=== PATIENT | male | born 1940 | race Caucasian/White ===

== ENCOUNTER → 2017-12-04 | Day surgery (SDC) | payer MEDICARE ==
[~2017-12-04] VITALS: Ht 177.8 cm; Wt 86.5 kg
[~2017-12-04] MED LIST: ASCO500C PO; CHLORHEXIDINE GLUCONATE 2 % 1 PACK (2 CLOTHS) TOPICAL PRN; FINA5TAB2 PO; HYALURONIDASE/LIDOCAINE/BUPIVACAINE 5 ML SYR RIGHT EYE SCH; LACTATED RINGER'S 1000 ML IV PRN; LIDOCAINE HCL 1% PF 30 ML VIAL ONE; METOPROLOL TARTRATE 25 MG TAB PO PRN; MULTTAB67 PO; OCUVTAB PO; POVIDONE IODINE 5% (ANTISEPSIS KIT) 4 APPLICATIONS EACH NARE PRN; PROPARACAINE HCL 0.5% OPHT SOLN 15 ML BTL RIGHT EYE ONE; PROPOFOL 200 MG/20 ML AMP ONE; SIMV40TA PO; SODIUM CHLORID 0.9% 500 ML IV PRN; TOBRAMYCIN/DEXAMETHASONE OPTH OINT 3.5 GM TUBE ONE
[2017-12-04] MEDS: TROPICAMIDE 1% OPHT SOLN 15 ML BTL RIGHT EYE SCH ×4 (06:55→07:10)
[2017-12-04] MEDS: CYCLOPENTOLATE HCL 1% OPHT SOLN 2 ML BTL RIGHT EYE SCH ×4 (06:55→07:10)
[2017-12-04] MEDS: PHENYLEPHRINE HCL 10% OPTH SOLN 5 ML BTL RIGHT EYE SCH ×4 (06:55→07:10)
[2017-12-04] MEDS: FLURBIPROFEN 0.03% OPHT SOLN 2.5 ML BTL RIGHT EYE SCH ×4 (06:55→07:10)
[2017-12-04 07:24] VITALS: PULSE 55
[2017-12-04 08:38] VITALS: TEMP 97.8
[2017-12-04 08:55] VITALS: BP 186/84; PULSE 55; RESP 16; O2SAT 97
--- NOTE | 2017-12-04 10:15 | MP ---
cc: ELAN VILLEGAS M.D. [facility] #: [id number] DATE: 12/04/2017 PREOPERATIVE DIAGNOSIS: Visually significant cataract right eye. POSTOPERATIVE DIAGNOSIS: Visually significant cataract right eye. OPERATION: Phacoemulsification with posterior chamber lens implantation, right eye. SURGEON: Elan Villegas MD ANESTHESIA: Retrobulbar with MAC. COMPLICATIONS: None. PROCEDURE: After informed consent was obtained, the patient was brought into the operative suite and placed on appropriate monitors by the Anesthesia Service. The patient had received a prior retrobulbar injection of local anesthetic by the Anesthesia Service in the holding area. The patient's operative eye was then prepped and draped in the usual sterile fashion. A wire lid speculum was placed. A paracentesis incision was made in the peripheral cornea with a 1 mm lon keratome. The anterior chamber was filled with viscoelastic. The anterior chamber was then entered through a stepped, clear corneal incision using a sharp 3 mm lon keratome. A circular tear capsulorrhexis was then made with a bent needle cystitome. Following hydrodissection of the lens nucleus with balanced saline, phacoemulsification of the nucleus was performed using a modified chopping technique. The remaining cortex was removed with irrigation/aspiration. The prior two procedures were both performed using the handpieces of the [employer] phaco unit. The capsular bag was then filled with viscoelastic. The intraocular lens was then injected into the capsular bag and positioned. The type of intraocular lens and its power can be found elsewhere in this chart. The remaining viscoelastic was then removed from the anterior chamber with the IA handpiece. The anterior chamber was reformed with balanced saline. The wound was then closed securely with stromal hydration. It was found to be watertight to an intraocular pressure of at least 30 mmHg by palpation. A small amount of balanced salt solution was then removed through the paracentesis site and the intraocular pressure at the end of the case was approximately 20 by palpation. All drapes were then removed. TobraDex ointment was then placed in the eye, which was closed beneath a semi-pressure patch dressing. The patient tolerated this procedure well and left the operating room awake and alert. The patient is to follow-up in my office in the morning. MD NASREEN Menard/GENA /9:55 AM /10:10 AM
== END | disposition home or self-care (01) ==
LOC: PHSDC 06:15
PROVIDERS: ATTEND Optometrist Occupational Vision
DX: H25.11 Age-related nuclear cataract, right eye (principal)
CPT/HCPCS: 00142; 66984; J7040; V2632

== ENCOUNTER → 2018-01-18 | Day surgery (SDC) | payer MEDICARE ==
[~2018-01-18] VITALS: Ht 177.8 cm; Wt 82.0 kg
[~2018-01-18] MED LIST changes: +HYALURONIDASE/LIDOCAINE/BUPIVACAINE 5 ML SYR LEFT EYE ONE; -HYALURONIDASE/LIDOCAINE/BUPIVACAINE 5 ML SYR RIGHT EYE SCH; -METOPROLOL TARTRATE 25 MG TAB PO PRN; +OCUVCAP PO; -OCUVTAB PO; +PROPARACAINE HCL 0.5% OPHT SOLN 15 ML BTL LEFT EYE ONE; -PROPARACAINE HCL 0.5% OPHT SOLN 15 ML BTL RIGHT EYE ONE; +SODIUM CHLORID 0.9% 500 ML INJ 500 ML ONE; -SODIUM CHLORID 0.9% 500 ML IV PRN
[2018-01-18 08:10] VITALS: PULSE 57
[2018-01-18] MEDS: FLURBIPROFEN 0.03% OPHT SOLN 2.5 ML BTL LEFT EYE SCH ×4 (08:18→08:33)
[2018-01-18] MEDS: CYCLOPENTOLATE HCL 1% OPHT SOLN 2 ML BTL LEFT EYE SCH ×4 (08:18→08:33)
[2018-01-18] MEDS: TROPICAMIDE 1% OPHT SOLN 15 ML BTL LEFT EYE SCH ×4 (08:18→08:33)
[2018-01-18] MEDS: PHENYLEPHRINE HCL 10% OPTH SOLN 5 ML BTL LEFT EYE SCH ×4 (08:18→08:33)
[2018-01-18 08:42] VITALS: PULSE 58
[2018-01-18 09:37] VITALS: TEMP 97.5
[2018-01-18 09:55] VITALS: BP 176/109; PULSE 61; RESP 16; O2SAT 100
--- NOTE | 2018-01-18 10:03 | MP ---
cc: Elan Arredondo MD DATE OF OPERATION: 01/18/2018 PREOPERATIVE DIAGNOSIS: Visually significant cataract left eye. POSTOPERATIVE DIAGNOSIS: Visually significant cataract left eye. OPERATION: Phacoemulsification with posterior chamber lens implantation, left eye. SURGEON: Elan Arredondo MD ANESTHESIA: Retrobulbar with MAC. COMPLICATIONS: None. PROCEDURE: After informed consent was obtained, the patient was brought into the operative suite and placed on appropriate monitors by the Anesthesia Service. The patient had received a prior retrobulbar injection of local anesthetic by the Anesthesia Service in the holding area. The patient's operative eye was then prepped and draped in the usual sterile fashion. A wire lid speculum was placed. A paracentesis incision was made in the peripheral cornea with a 1 mm lon keratome. The anterior chamber was filled with viscoelastic. The anterior chamber was then entered through a stepped, clear corneal incision using a sharp 3 mm lon keratome. A circular tear capsulorrhexis was then made with a bent needle cystitome. Following hydrodissection of the lens nucleus with balanced saline, phaco-emulsification of the nucleus was performed using a modified chopping technique. The remaining cortex was removed with irrigation/aspiration. The prior two procedures were both performed using the handpieces of the [employer] phaco unit. The capsular bag was then filled with viscoelastic. The intraocular lens was then injected into the capsular bag and positioned. The type of intraocular lens and its power can be found elsewhere in this chart. The remaining viscoelastic was then removed from the anterior chamber with the IA handpiece. The anterior chamber was reformed with balanced saline. The wound was then closed securely with stromal hydration. It was found to be watertight to an intraocular pressure of at least 30 mmHg by palpation. A small amount of balanced salt solution was then removed through the paracentesis site and the intraocular pressure at the end of the case was approximately 20 by palpation. All drapes were then removed. TobraDex ointment was then placed in the eye, which was closed beneath a semi-pressure patch dressing. The patient tolerated this procedure well and left the operating room awake and alert. The patient is to follow-up in my office in the morning. MD NASREEN Menard/EVERETT , 09:50 AM , 10:01 AM
== END | disposition home or self-care (01) ==
LOC: PHSDC 06:45 → EDUNIT# 10:00
PROVIDERS: ATTEND Optometrist Occupational Vision
DX: H25.812 Combined forms of age-related cataract, left eye (principal)
CPT/HCPCS: 00142; 66984; J7040; V2632

== ENCOUNTER 2018-10-15 05:23 | Inpatient (IN) ==
[2018-10-15] MEDS ORDERED: Chlorhexidine Gluconate 2% 1 Pack (2 Cloths) TOPICAL ONE (06:05)
[2018-10-15] MEDS ORDERED: Metoprolol Tartrate 25 MG Tablet PO ONE (06:05)
[2018-10-15] MEDS ORDERED: fentaNYL Citrate Inj 250 MCG/5 ML Ampul ONE (06:59)
[2018-10-15] MEDS ORDERED: Sodium Chlor 0.9% Inj 500 ML IV.SIG SCH (07:00)
[2018-10-15] MEDS ORDERED: ceFAZolin 1 GM Premix Inj 2 GM/100 ML PIGGYBACK IV.SIG ONE (07:29)
[2018-10-15] MEDS ORDERED: Sodium Chlor 0.9% Inj 20 ML, Bupivacaine Liposo PF 1.3% Inj 20 ML, Dexamethasone PF Inj... IRRIGATION ONE ×4 (08:00)
[2018-10-15] MEDS ORDERED: Bisacodyl 10 MG Supp RECTAL PRN (10:27)
[2018-10-15] MEDS ORDERED: Post-op Orders (for Pharmacy) OTHER STA (10:27)
[2018-10-15] MEDS ORDERED: Naloxone Inj 0.4 MG/ML Vial IV.PUSH PRN (10:27)
[2018-10-15] MEDS ORDERED: Morphine Inj 30 MG/30 ML PCA.VIAL PCA PRN (10:30)
--- NOTE | 2018-10-15 10:48 | P.OP ---
- Preoperative Diagnosis (1) Lung cancer Postoperative Diagnosis: same Date of procedure: 10/15/18 Procedure: Left thoracotomy, excisional biopsy left upper lobe mass grossly invading the chest wall, excisional biopsy second superior segment left lower lobe mass Frozen section - LLL mass (malignant) Lymph node dissection Anesthesia: GETA Surgeon: Sita Mayfield MD Tuber Machine Operator: Tiera Penny Estimated blood loss (mL): 100 Pathology: other (left upper lobe mass, left lower lobe mass, level 5 lymph node , level 9 lymph node) Operation and Findings: After adequate general anesthesia the patient was placed in the right lateral decubitus position and the left chest was prepped and draped in usual manner. Initially, VATS exploration was performed through an anterior port. The left upper lobe tumor was noted to be invading the chest wall. A second lateral port was placed at ~7th intercostal space. The upper lobe was mobilized and tumor was grossly visible in the chest wall with obvious central necrosis. Due to the size of the tumor and chest wall invasion, small posterolateral thoracotomy incision was performed and electrocautery was used to obtain hemostasis and carry the dissection down through the latissimus dorsi. A soft tissue retractor was placed after shingling the 5th rib posteriorly. The left lower lobe mass in the superior segment was resected first and submitted for frozen section. The result was malignant, but the type of cancer was deferred to final analysis. Due to the chest wall invasion, separate tumors in both lobes, and the patient's age and overall functional status, excisional biopsy of the left upper lobe mass was performed. The inferior pulmonary ligament was divided and a level 9 lymph node submitted to pathology. additionally, a level 5 AP window node was resected and submitted. A 32 Portuguese chest tube was then placed through the anterior port and this was secured with 0 silk suture. Esparel rib blocks were performed for postoperative analgesia. The lung was ventilated and no significant air leaks were found. The wound was closed in layers approximately in the ribs initially with a 2. Vicryl [id number] suture. The latissimus dorsi was reapproximated using a running 0 Vicryl suture. The subcutaneous tissues approximated running 2-0 Vicryl suture and the skin was approximated using running 4-0 Monocryl subcuticular stitch. All sponges history counts were correct at the close the procedure and the patient was transferred to the PACU for recovery purposes.
--- NOTE | 2018-10-15 12:09 | XR ---
EXAM DATE: 10/15/2018 11:47 AM EST AGE/SEX: 78 years / Male INDICATIONS: Status post left thoracotomy. CLINICAL DATA: This is the patient's subsequent encounter. Patient reports that signs and symptoms h ave been present for 1 day and indicates a pain score of 0/10. MEDICAL/SURGICAL HISTORY: None. None. [place] [facility] [place]. . FINDINGS: Large bore chest tube in place on the left. Minimal parenchymal changes are seen in the left midlung and left base. Minimal subcutaneous emphysema is present Right lung is clear. CONCLUSION: Left chest tube in good position with minimal parenchymal changes centrally on the left following tho racotomy. Electronically signed by: Flakito Diaz MD Board Certified Radiologist 10/15/2018 12:08 PM EST
[2018-10-15] MEDS: ceFAZolin 1 GM Premix Inj 1 GM/50 ML PIGGYBACK IV.SIG SCH ×2 (16:17→16:22)
[2018-10-15] MEDS: Senna/Docusate Sodium 8.6/50 MG Tablet PO SCH (20:38)
[2018-10-16] MEDS: ceFAZolin 1 GM Premix Inj 1 GM/50 ML PIGGYBACK IV.SIG SCH ×2 (00:42→09:03)
[2018-10-16 04:03] LABS: Baso % (Auto) 0.2 % (0.0-2.0); Hematocrit 37.8 % (39.0-51.0); Hemoglobin 12.7 gm/dL (13.0-17.0); Lymph # (Auto) 1.6 th/mm3 (1.0-4.8); Lymph % (Auto) 11.9 % (9.0-44.0); Mean Corpuscular HGB Conc 33.5 % (32.0-36.0); Mean Corpuscular Hemoglobin 31.8 pg (27.0-34.0); Mean Corpuscular Volume 94.7 fL (80.0-100.0); Mean Platelet Volume 8.9 fL (7.0-11.0); Mono # (Auto) 1.1 th/mm3 (0.0-0.9); Mono % (Auto) 8.2 % (0.0-8.0); Neut # (Auto) 10.6 th/mm3 (1.8-7.7); Neut % (Auto) 79.7 % (16.0-70.0); Platelet Count 197 th/mm3 (150-450); Red Blood Count 3.99 mil/mm3 (4.50-5.90); Red Cell Distribution Width 13.5 % (11.6-17.2); White Blood Count 13.3 th/mm3 (4.0-11.0)
[2018-10-16 04:26] LABS: Calcium 8.1 mg/dL (8.5-10.1); Carbon Dioxide 26.6 meq/L (21.0-32.0)
[2018-10-16] MEDS: Ascorbic Acid 500 MG Tablet PO SCH (09:02)
[2018-10-16] MEDS: Senna/Docusate Sodium 8.6/50 MG Tablet PO SCH ×2 (09:02→20:01)
[2018-10-16] MEDS: FINASTERIDE 1 MG PO SCH (09:04)
[2018-10-16] MEDS ORDERED: Enoxaparin Inj 40 MG/0.4 ML Syringe SQ SCH (10:00)
--- NOTE | 2018-10-16 10:23 | P.PNCV ---
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 He underwent CT-PET which showed hypermetabolic mass with possible lymph node involvement at the hilum. 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 PMH: Basal Cell CA, CKD, COPD, essential tremor, HLP 10/15pt electively admitted for surgery Preoperative Diagnosis (1) Lung cancer Postoperative Diagnosis: Date of procedure: 10/15/18 Procedure: Left thoracotomy, excisional biopsy left upper lobe mass grossly invading the chest wall, excisional biopsy second superior segment left lower lobe mass Frozen section - LLL mass (malignant) Lymph node dissection Pathology: other (left upper lobe mass, left lower lobe mass, level 5 lymph node , level 9 lymph node) 10/16 CXR pending, no air leak , chest tube placed to water seal Dr Mayfield to speak with pt and family today regarding surgery outcome, still await final path pt had some difficulty with urination last pm, and required a straight cath has since voided small amounts, 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, 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 GI motility meds , OOB , ambulate UA pending Objective: Vital Signs - 24 hr 10/15/18 10:47 10/15/18 11:00 10/15/18 11:15 Temperature 97.6 F Pulse Rate 85 84 Respiratory Rate 20 20 20 Blood Pressure 123/64 137/61 134/64 Pulse Oximetry 96 96 96 10/15/18 11:30 10/15/18 11:45 10/15/18 12:45 Temperature Pulse Rate 83 88 88 Respiratory Rate 20 20 Blood Pressure 140/68 146/68 H 147/71 H Pulse Oximetry 96 92 L 92 L 10/15/18 14:30 10/15/18 15:00 10/15/18 19:15 Temperature 97.9 F 97.9 F Pulse Rate 89 92 H 88 Respiratory Rate 16 16 Blood Pressure 154/65 H 166/75 H Pulse Oximetry 92 L 92 L 10/15/18 20:00 10/15/18 21:00 10/15/18 22:00 Temperature 98.2 F Pulse Rate 116 H 114 H 114 H Respiratory Rate 16 Blood Pressure 158/75 H Pulse Oximetry 94 L 10/15/18 23:00 10/16/18 00:00 10/16/18 01:00 Temperature 98.2 F Pulse Rate 95 H 103 H 75 Respiratory Rate 16 Blood Pressure 156/70 H Pulse Oximetry 93 L 10/16/18 02:00 10/16/18 03:00 10/16/18 04:00 Temperature 98.4 F Pulse Rate 86 92 H 93 H Respiratory Rate 16 Blood Pressure 156/82 H Pulse Oximetry 92 L 10/16/18 05:00 10/16/18 06:00 Temperature Pulse Rate 96 H 85 Respiratory Rate Blood Pressure Pulse Oximetry GENERAL: A&O x 3 SKIN: Warm and dry. incision intact left posterior chest wall, incision intact left lateral chest wall HEAD: Normocephalic. EYES: No scleral icterus. No injection or drainage. NECK: Supple, trachea midline. No JVD or lymphadenopathy. CARDIOVASCULAR: Regular rate and rhythm without murmurs, gallops, or rubs. RESPIRATORY: Breath sounds equal bilaterally. No accessory muscle use. chest tube no to water seal, no air leak / drained 200cc/ 24 hrs GASTROINTESTINAL: Abdomen soft, non-tender, nondistended. MUSCULOSKELETAL: No cyanosis, or edema. BACK: Nontender without obvious deformity. No CVA tenderness. Labs: Laboratory Results - last 12 hr 10/16/18 10/16/18 03:51 03:51 WBC 13.3 H RBC 3.99 L Hgb 12.7 L Hct 37.8 L MCV 94.7 MCH 31.8 MCHC 33.5 RDW 13.5 Plt Count 197 MPV 8.9 Neut % (Auto) 79.7 H Lymph % (Auto) 11.9 Dade % (Auto) 8.2 H Eos % (Auto) 0.0 Baso % (Auto) 0.2 Neut # (Auto) 10.6 H Lymph # (Auto) 1.6 Dade # (Auto) 1.1 H Eos # (Auto) 0.0 Baso # (Auto) 0.0 WBC Differential . 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
--- NOTE | 2018-10-16 10:26 | P.DCO ---
- Diagnosis (1) Lung cancer Status: Acute (2) S/P thoracotomy Status: Acute - Home Health Nursing Order: Medical education, Signs/symptoms of disease process, Wound care and dressing changes, Nursing assessment with vital signs Instructions: Thoracic Surgery patients Mandatory frequency Assess and evaluation, 2-3 x a week for one week Initial visit 1. Review post chest surgery instructions chest precautions, Activity, Elastic hose, Incision care, Driving, Incentive spirometry, Smoking, [place] , Work and other) 2. Need Betadine to paint incision 3. Medication reconciliation 4. Importance of follow up care/ check on appointments 5. Make calendar record temperature daily 6. When to call Home nurse, review instructions, phone list 7. Incentive Spirometry, demonstration Visit 1- Begin discharge instruction for patient family and/ or caregiver using teach back method- 1. Signs and symptoms of infection 2. Disease characteristics 3. Medicines and side effects 4. Foods and nutrition/ appetite 5. Infection control/ hand washing/ hygiene Visit 2- Continue teaching 1. Discharge instructions- include additional information on smoking cessation , Visit 3- Continue teaching- 1. Cough and deep breathing, incision monitoring. For any questions please call : / [facility] [phone] Incentive spirometry Q1 hr x 10, while awake, also use acapella device hourly whole Chest wall precautions: NO pushing or pulling, ( pt must use chest pillow support chest with all activities and with coughing Daily incision care: ok to shower ( 48hrs after chest tube removed) and then daily, no tub bath. Wash all incisions with liquid dial soap, clean wash cloth to each site, rinse and pat dry. Observe for any signs of infection, such as drainage which is dark yellow, guevara, green or foul smelling. Immediately report to the surgeon any drainage from the chest incision, or legs, and for any abnormal drainage from the chest tube sites. Notify surgeon if any temp > 101.5 degrees F. When specialty dressing removed/ or if you do not have one, continue to shower daily as above, then rinse and pat incision dry and paint with betadine daily x 5 days. Allow steri strips to fall off if you have any. Avoid lotions, creams, salves, oils, etc. for the first month For Dr. Mayfield patients , please obtain PA & Lat CXR in 2 weeks, results to Dr. Mayfield ( prescription will be given) ( ) (Tele: [phone]) , F/U appointment: as per [place] instructions: PCP in 2 weeks, CV surgeon 2 weeks, Direct Mail Coordinator 3-4 weeks For any questions regarding incisions/ dressing / meds / post op care or above Symptoms, Monday 8am-5pm Heart & Vascular Surgery Office ( Dr. Leung & Dr. Mayfield), After Hours / Nights (5pm -8am) Weekends and Holidays Please call [facility] Cardiac [facility] Unit (CIC) Charge Nurse - Case Management Consult Case Management Consult-Home Health: Yes - Certification I have seen patient Ike Roque on 10/16/18. My clinical findings support the need for the requested home health care services because: Deconditioned with increased weakness I certify that my clinical findings support that this patient is homebound because: Post-op weakness
--- NOTE | 2018-10-16 11:07 | XR ---
EXAM DATE: 10/16/2018 10:53 AM EST AGE/SEX: 78 years / Male INDICATIONS: Short of breath, evaluate pleural effusion CLINICAL DATA: This is the patient's subsequent encounter. Patient reports that signs and symptoms h ave been present for 2 days and indicates a pain score of 5/10. MEDICAL/SURGICAL HISTORY: . pleural effusion Chest tube, left. COMPARISON: [facility] [place], CHEST 1V SINGLE AP, 10/15/2018. [facility] [place]ST 2V PA&LAT, 10/12/2018. . FINDINGS: Portable AP view of the chest demonstrates a normal-sized cardiac silhouette. Large bore chest tube r emains present on the left with tip at the apex of the hemithorax. No pneumothorax is identified. Sergio gs are underinflated with likely atelectasis at the lung bases. There is stable airspace opacity in t he left upper lung zone surrounding the lung staple line. The bones and soft tissues demonstrate no a cute finding. Mild supraclavicular and left chest wall subcutaneous emphysema remains. CONCLUSION: 1. No pleural effusion is visualized. 2. Left chest tube remains present and no pneumothorax is identified. There is a stable opacity in t he left upper lung zone. Electronically signed by: Jase Munoz MD Board Certified Radiologist 10/16/2018 11:06 AM EST
[2018-10-16] MEDS ORDERED: Metoprolol Inj 5 MG/5 ML Vial IV.PUSH ONE (17:15)
[2018-10-16 17:41] LABS: Bilirubin,Urine Negative (Negative); Clarity,Urine Clear (Clear); Glucose,Urine (UA) Negative (Negative); Leukocyte Esterase,Urine Negative (Negative); Mucus,Urine Few /lpf (Occasional); Nitrite,Urine Negative (Negative); Specific Gravity,Urine 1.001 (1.002-1.035)
[2018-10-16 17:44] LABS: Color,Urine Straw (Yellw/Straw)
[2018-10-16] MEDS ORDERED: dilTIAZem Inj 125 MG in Sodium Chlor 0.9% Inj 100 ML IV.CONT PRN (18:07)
[2018-10-16] MEDS: Metoprolol Tartrate 25 MG Tablet PO SCH (20:01)
[2018-10-17] MEDS: Metoprolol Tartrate 25 MG Tablet PO SCH (08:06)
[2018-10-17] MEDS: Senna/Docusate Sodium 8.6/50 MG Tablet PO SCH ×2 (08:07→22:24)
[2018-10-17] MEDS: FINASTERIDE 1 MG PO SCH (08:07)
[2018-10-17] MEDS: Ascorbic Acid 500 MG Tablet PO SCH (08:08)
[2018-10-17] MEDS ORDERED: dilTIAZem 30 MG Tablet PO SCH (09:35)
[2018-10-17 11:07] LABS: Hematocrit 36.3 % (39.0-51.0); Hemoglobin 12.4 gm/dL (13.0-17.0); Mean Corpuscular HGB Conc 34.1 % (32.0-36.0); Mean Corpuscular Volume 96.8 fL (80.0-100.0); Mean Platelet Volume 9.3 fL (7.0-11.0); Platelet Count 198 th/mm3 (150-450); Red Blood Count 3.75 mil/mm3 (4.50-5.90); Red Cell Distribution Width 13.8 % (11.6-17.2); White Blood Count 13.9 th/mm3 (4.0-11.0)
[2018-10-17] MEDS ORDERED: Melatonin 5 MG Tablet PO PRN (11:10)
[2018-10-17 11:25] LABS: Calcium 7.9 mg/dL (8.5-10.1); Carbon Dioxide 28.5 meq/L (21.0-32.0); Phosphorus 2.5 mg/dL (2.5-4.9); Potassium 3.6 meq/L (3.5-5.1)
[2018-10-17] MEDS ORDERED: Enoxaparin Inj 80 MG/0.8 ML Syringe SQ SCH (12:00)
[2018-10-17] MEDS: Finasteride 5 MG Tablet PO SCH (12:31)
--- NOTE | 2018-10-17 15:09 | P.PNCV ---
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 He underwent CT-PET which showed hypermetabolic mass with possible lymph node involvement at the hilum. 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 PMH: Basal Cell CA, CKD, COPD, essential tremor, HLP 10/15pt electively admitted for surgery Preoperative Diagnosis (1) Lung cancer Postoperative Diagnosis: Date of procedure: 10/15/18 Procedure: Left thoracotomy, excisional biopsy left upper lobe mass grossly invading the chest wall, excisional biopsy second superior segment left lower lobe mass Frozen section - LLL mass (malignant) Lymph node dissection Pathology: other (left upper lobe mass, left lower lobe mass, level 5 lymph node , level 9 lymph node) 10/16 CXR pending, no air leak , chest tube placed to water seal Dr Mayfield to speak with pt and family today regarding surgery outcome, still await final path pt had some difficulty with urination last pm, and required a straight cath has since voided small amounts, 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, 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 GI motility meds , OOB , ambulate UA pending 10/17 went into afib RVR last pm, started on cardizem gtt converted to NSR discussed with Dr Pretty , add ASA, continue BB , outpt f/u with Dr Ling chest tube removed without difficulty await urology input, then dc in am Objective: Vital Signs - 24 hr 10/16/18 16:00 10/16/18 17:00 10/16/18 18:00 Temperature 98 F Pulse Rate 93 H 103 H 85 Respiratory Rate 17 Blood Pressure 192/83 H Pulse Oximetry 92 L 10/16/18 19:00 10/16/18 20:00 10/16/18 21:00 Temperature 97.5 F L Pulse Rate 96 H 78 84 Respiratory Rate 16 16 Blood Pressure 131/69 Pulse Oximetry 93 L 10/16/18 22:00 10/16/18 23:00 10/17/18 00:00 Temperature 97.5 F L Pulse Rate 140 H 90 72 Respiratory Rate 16 Blood Pressure 138/63 Pulse Oximetry 92 L 10/17/18 01:00 10/17/18 02:00 10/17/18 03:00 Temperature Pulse Rate 78 82 86 Respiratory Rate Blood Pressure Pulse Oximetry 10/17/18 03:57 10/17/18 04:00 10/17/18 05:00 Temperature 97.8 F Pulse Rate 90 93 H 93 H Respiratory Rate 16 Blood Pressure 163/70 H Pulse Oximetry 90 L 10/17/18 06:00 10/17/18 07:00 10/17/18 07:28 Temperature 98.4 F Pulse Rate 83 85 82 Respiratory Rate 16 Blood Pressure 164/74 H Pulse Oximetry 97 10/17/18 09:00 10/17/18 10:00 10/17/18 11:00 Temperature Pulse Rate 60 70 70 Respiratory Rate Blood Pressure Pulse Oximetry 10/17/18 11:59 10/17/18 12:00 10/17/18 12:02 Temperature 98.3 F Pulse Rate 82 70 Respiratory Rate 16 16 Blood Pressure 168/78 H Pulse Oximetry 96 10/17/18 12:32 10/17/18 13:00 10/17/18 14:00 Temperature Pulse Rate 78 76 80 Respiratory Rate 17 Blood Pressure 141/65 H Pulse Oximetry 97 GENERAL: A&O x3 SKIN: Warm and dry. incision intact to left posterior chest wall HEAD: Normocephalic. EYES: No scleral icterus. No injection or drainage. NECK: Supple, trachea midline. No JVD or lymphadenopathy. CARDIOVASCULAR: Regular rate and rhythm without murmurs, gallops, or rubs. RESPIRATORY: Breath sounds equal bilaterally. No accessory muscle use. GASTROINTESTINAL: Abdomen soft, non-tender, nondistended. MUSCULOSKELETAL: No cyanosis, or edema. BACK: Nontender without obvious deformity. No CVA tenderness. Labs: Laboratory Results - last 12 hr 10/17/18 10/17/18 10/17/18 10:20 10:20 10:20 WBC 13.9 H RBC 3.75 L Hgb 12.4 L Hct 36.3 L MCV 96.8 MCH 33.0 MCHC 34.1 RDW 13.8 Plt Count 198 MPV 9.3 Sodium 137 Potassium 3.6 Chloride 102 Carbon Dioxide 28.5 Anion Gap 7 BUN 17 Creatinine 1.12 Estimated GFR 63 L Random Glucose 111 H Calcium 7.9 L Phosphorus 2.5 TSH 0.816 Result Diagrams: 10/17/18 10:20 10/17/18 10:20 Telemetry: NSR> Afib> NSR - Plan (1) Lung cancer Plan: path pending Final Diagnosis #1- SUPERIOR SEGMENT LEFT LOWER LOBE MASS, WEDGE RESECTION: WELL DIFFERENTIATED ADENOCARCINOMA. SEE TUMOR SYNOPSIS. HISTOLOGIC TYPE: INVASIVE ADENOCARCINOMA, LEPIDIC PREDOMINANT. HISTOLOGIC GRADE: GRADE 1, WELL DIFFERENTIATED. REGIONAL LYMPH NODES: NUMBER OF LYMPH NODES INVOLVED: 0 NUMBER OF LYMPH NODES EXAMINED: 2 (0/2) PATHOLOGIC STAGE CLASSIFICATION (pTNM, AJCC 8th Edition): pT1c, pN0. ADDITIONAL PATHOLOGIC FINDINGS: RESPIRATORY BRONCHIOLITIS. 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 SEE TUMOR SYNOPSIS. HISTOLOGIC TYPE: INVASIVE SQUAMOUS CELL CARCINOMA, NON- KERATINIZING. HISTOLOGIC GRADE: GRADE 3, POORLY DIFFERENTIATED. VISCERAL PLEURAL MARGIN OF RESECTION POSITIVE FOR CARCINOMA. REGIONAL LYMPH NODES: NUMBER OF LYMPH NODES INVOLVED: 1 NUMBER OF LYMPH NODES EXAMINED: 2 (1/2) PATHOLOGIC STAGE CLASSIFICATION (pTNM, AJCC 8th Edition): pT2, pN2. #3- LEVEL 9 LYMPH NODE, EXCISION: NO EVIDENCE OF METASTATIC CARCINOMA IN ONE LYMPH NODE (0/1). #4- LEVEL 5 LYMPH NODE, EXCISION: METASTATIC SQUAMOUS CELL CARCINOMA IN ONE LYMPH NODE (1/). THE METASTASIS IS 0.4 CM IN DIAMETER. EXTRANODAL EXTENSION OF TUMOR IS NOT IDENTIFIED. path discussed with pt per Dr Mayfield discussed with Dr Garcia chest tube dc without difficulty pulm toileting OOB ambulate (3) Urinary retention Plan: barrera cath replaced after prior attempt with straight cath drained 2000cc us neg for bacteria on Flomax and finasteride await urology consult followed by Dr Mercado as outpt (4) Atrial fib/flutter, transient Plan: converted back to NSR on BB on ASA, BB echo pending / outpt f/u with Cardiology
[2018-10-17] MEDS ORDERED: Metoprolol Tartrate 25 MG Tablet PO ONE (15:30)
--- NOTE | 2018-10-17 15:45 | P.CONURO ---
History of Present Illness Service: urology Consult date: 10/17/18 Requesting Physician: Nanette Sinclair Reason for Consult: urinary retention Primary Care Provider: Chetan Hurtado MD, PhD History of Present Illness: 78 yo male admitted for excisional biopsy of lung cancer. Urology was consulted for urinary retention post-op. Krishnamurthy was placed with 1.8 liter urine drained. Patient is a patient of urologist Dr. Mercado and was previously on Proscar for BPH. Currently he is on Flomax and Proscar. Urine appears clear and his labs are stable post-op. He denies chills, fever, gross hematuria, abdominal or flank pain. He denies any previous issues with urinary retention. Review of Systems All other systems reviewed negative except as stated in [facility] - History History Provided By: Patient, Significant Other - Medical History Medical History: Medical History (Last Reviewed 10/15/18 @ 05:48 by Génesis Dumont) BPH (benign prostatic hyperplasia) Former cigarette smoker Hx of skin cancer, basal cell Hyperlipidemia - Surgical History Surgical History: Surgical History (Last Reviewed 10/15/18 @ 05:48 by Génesis Dumont) Hx of cataract removal with insertion of prosthetic lens Hx of inguinal hernia repair - Tobacco History Second Hand Smoke Exposure: No Tobacco Use In Past 30 Days: No Smoking Status: Former smoker Tobacco Type: Cigarettes - Alcohol History How Often Do You Have a Drink Containing Alcohol: Monthly or less - Substance Use History Substance History: No History of Abuse - Travel History Recent Travel in the [place] Within the Last 8 Weeks: No Recent Travel Out of the Country Within the Last 8 Weeks: No - Immunization History Tetanus Immunization: >5 Years Hx Influenza Vaccine This Season: Yes Medications and Allergies Active Medications: Active Medications Hydrocodone Bitart/Acetaminophen ([place] 5/325) 1 tab PO Q4H PRN PRN Reason: pain 1-5 Last Admin: 10/17/18 13:39 Dose: 1 tab Hydrocodone Bitart/Acetaminophen ([place] 5/325) 2 tab PO Q4H PRN PRN Reason: PAIN 6-10;IF UNABLE TO TAKE PO Last Admin: 10/16/18 20:03 Dose: 2 tab Al Hydroxide/Mg Hydroxide (Milk Of Magnesia Liq) 30 ml PO Q12H PRN PRN Reason: Mild Constipation Albuterol (Albuterol Neb (Prn)) 2.5 mg NEB Q2HR NEB PRN PRN Reason: WHEEZING Ascorbic Acid (Vitamin C) 1,000 mg PO DAILY [facility] Last Admin: 10/17/18 08:08 Dose: 1,000 mg Aspirin (Ecotrin) 81 mg PO DAILY [facility] Bisacodyl (Dulcolax Supp) 10 mg RECTAL DAILY PRN PRN Reason: SEVERE CONSITIPATION Enoxaparin Sodium (Lovenox Inj) 40 mg SQ DAILY [facility] Finasteride (Proscar) 5 mg PO DAILY [facility] Last Admin: 10/17/18 12:31 Dose: 5 mg Sodium Chloride (Ns Inj) 500 mls @ 30 mls/hr IV.SIG .Q10H [facility] Last Admin: 10/15/18 19:43 Dose: Not Given Diltiazem HCl 125 mg/ Sodium (Chloride) 125 mls @ 10 mls/hr IV.CONT TITRATE PRN ; Protocol PRN Reason: Per Protocol Last Titration: 10/17/18 10:00 Dose: Infused Lactulose (Lactulose Liq) 30 ml PO DAILY PRN PRN Reason: SEVERE CONSITIPATION Melatonin (Melatonin) 5 mg PO HS PRN PRN Reason: sleep Metoprolol Tartrate (Lopressor) 50 mg PO BID [facility] Multivitamins (Theragran) 1 tab PO DAILY [facility] Last Admin: 10/17/18 08:08 Dose: 1 tab Ondansetron HCl (Zofran Inj) 4 mg IV.PUSH Q6H PRN PRN Reason: NAUSEA OR VOMITING Pantoprazole Sodium (Protonix) 40 mg PO HS [facility] Last Admin: 10/16/18 20:02 Dose: 40 mg Pt Own Med: ( (Finasteride 1 Mg )) 0 each PO DAILY [facility] Last Admin: 10/17/18 08:07 Dose: Not Given Pravastatin Sodium (Pravachol) 80 mg PO HS [facility] Last Admin: 10/16/18 20:02 Dose: 80 mg Senna/Docusate Sodium (Mady-Colace) 1 tab PO BID [facility] Last Admin: 10/17/18 08:07 Dose: 1 tab Sennosides (Senokot) 17.2 mg PO Q12H PRN PRN Reason: Moderate Constipation Sodium Chloride (Ns Flush) 2 ml IV.FLUSH BID [facility] Last Admin: 10/17/18 08:06 Dose: Not Given Sodium Chloride (Ns Flush) 2 ml IV.FLUSH PRN PRN PRN Reason: FLUSH AFTER USING IV ACCESS Tamsulosin HCl (Flomax) 0.4 mg PO DAILY [place] Last Admin: 10/17/18 08:06 Dose: 0.4 mg Allergies Allergy/AdvReac Type Severity Reaction Status Date / Time No Known Allergies Allergy Verified 10/15/18 05:49 Home Medications Medication Instructions Recorded Confirmed Type finasteride 1 mg PO DAILY 08/23/18 10/15/18 History simvastatin 40 mg PO QPM 08/23/18 10/15/18 History ascorbic acid (vitamin C) [Vitamin 1,000 mg PO DAILY 09/06/18 10/15/18 History C] multivitamin 1 tab PO DAILY 09/06/18 10/15/18 History vit A,C and Q-[id number]-jihvmmhu 1 tab PO DAILY 10/12/18 10/15/18 History [Ocuvite with Lutein] Physical Exam Vital Signs - 24 hr 10/16/18 16:00 10/16/18 17:00 10/16/18 18:00 Temperature 98 F Pulse Rate 93 H 103 H 85 Respiratory Rate 17 Blood Pressure 192/83 H Pulse Oximetry 92 L 10/16/18 19:00 10/16/18 20:00 10/16/18 21:00 Temperature 97.5 F L Pulse Rate 96 H 78 84 Respiratory Rate 16 16 Blood Pressure 131/69 Pulse Oximetry 93 L 10/16/18 22:00 10/16/18 23:00 10/17/18 00:00 Temperature 97.5 F L Pulse Rate 140 H 90 72 Respiratory Rate 16 Blood Pressure 138/63 Pulse Oximetry 92 L 10/17/18 01:00 10/17/18 02:00 10/17/18 03:00 Temperature Pulse Rate 78 82 86 Respiratory Rate Blood Pressure Pulse Oximetry 10/17/18 03:57 10/17/18 04:00 10/17/18 05:00 Temperature 97.8 F Pulse Rate 90 93 H 93 H Respiratory Rate 16 Blood Pressure 163/70 H Pulse Oximetry 90 L 10/17/18 06:00 10/17/18 07:00 10/17/18 07:28 Temperature 98.4 F Pulse Rate 83 85 82 Respiratory Rate 16 Blood Pressure 164/74 H Pulse Oximetry 97 10/17/18 09:00 10/17/18 10:00 10/17/18 11:00 Temperature Pulse Rate 60 70 70 Respiratory Rate Blood Pressure Pulse Oximetry 10/17/18 11:59 10/17/18 12:00 10/17/18 12:02 Temperature 98.3 F Pulse Rate 82 70 Respiratory Rate 16 16 Blood Pressure 168/78 H Pulse Oximetry 96 10/17/18 12:32 10/17/18 13:00 10/17/18 14:00 Temperature Pulse Rate 78 76 80 Respiratory Rate 17 Blood Pressure 141/65 H Pulse Oximetry 97 10/17/18 15:00 Temperature Pulse Rate 86 Respiratory Rate Blood Pressure Pulse Oximetry Physical Exam: GENERAL: This is a well-nourished, well-developed patient, in no apparent distress. SKIN: No rashes, ecchymoses or lesions. Cool and dry. HEAD: Atraumatic. Normocephalic. CARDIOVASCULAR: Regular rate and rhythm without murmurs, gallops, or rubs. RESPIRATORY: Clear to auscultation. Breath sounds equal bilaterally. No wheezes , rales, or rhonchi. GASTROINTESTINAL: Abdomen soft, non-tender, nondistended. GENITOURINARY: Krishnamurthy catheter in place draining clear yellow urine. MUSCULOSKELETAL: Extremities without clubbing, cyanosis, or edema. NEUROLOGICAL: Awake and alert. Laboratory Results - last 24 hr 10/16/18 10/17/18 10/17/18 16:50 10:20 10:20 WBC 13.9 H RBC 3.75 L Hgb 12.4 L Hct 36.3 L MCV 96.8 MCH 33.0 MCHC 34.1 RDW 13.8 Plt Count 198 MPV 9.3 Sodium 137 Potassium 3.6 Chloride 102 Carbon Dioxide 28.5 Anion Gap 7 BUN 17 Creatinine 1.12 Estimated GFR 63 L Random Glucose 111 H Calcium 7.9 L Phosphorus 2.5 Magnesium TSH Urine Color Straw Urine Clarity Clear Urine pH 5.0 Ur Specific [place] 1.001 L Urine Protein Negative Urine Glucose (UA) Negative Urine Ketones Trace H Urine Occult Blood Negative Urine Nitrate Negative Urine Bilirubin Negative Urine Urobilinogen Less than 2 Ur Leukocyte Esterase Negative Urine RBC Less than 1 Urine Mucus Few H Micro UA Comment Culture not ind Ur Microscopic Review Not Reportable Urine Culture Comments Culture not ind 10/17/18 10/17/18 10:20 10:20 WBC RBC Hgb Hct MCV MCH MCHC RDW Plt Count MPV Sodium Potassium Chloride Carbon Dioxide Anion Gap BUN Creatinine Estimated GFR Random Glucose Calcium Phosphorus Magnesium 2.3 TSH 0.816 Urine Color Urine Clarity Urine pH Ur Specific [place] Urine Protein Urine Glucose (UA) Urine Ketones Urine Occult Blood Urine Nitrate Urine Bilirubin Urine Urobilinogen Ur Leukocyte Esterase Urine RBC Urine Mucus Micro UA Comment Ur Microscopic Review Urine Culture Comments Result Diagrams: 10/17/18 10:20 10/17/18 10:20 Imaging: ITS Impressions Chest X-Ray 10/16/18 10:27 CONCLUSION: 1. No pleural effusion is visualized. 2. Left chest tube remains present and no pneumothorax is identified. There is a stable opacity in the left upper lung zone. Assessment and Plan - Plan No acute intervention required. Continue management as per primary team. Keep catheter in, continue Flomax and Proscar after discharge. Patient to follow up with Dr. Mercado a few days following discharge for voiding trial. Discussed Condition With: Dr. Batsheva BLACKWELL attending
--- NOTE | 2018-10-17 16:24 | ECG ---
Date Performed: 10/16/2018 Time Performed: 17:02:16 PTAGE: 78 years EKG: Sinus tachycardia with PAC(s) Inferior T wave changes are nonspecific Since the previous tr acing, no significant change noted Borderline ECG PREVIOUS TRACING : 10/12/2018 11.08 DOCTOR: Ashley Ortega Interpretating Date/Time 10/17/2018 16:23:13
--- NOTE | 2018-10-17 16:24 | ECG ---
Date Performed: 10/16/2018 Time Performed: 17:56:36 PTAGE: 78 years EKG: Atrial fibrillation with uncontrolled ventricular response. Inferior ST-T changes are nonsp ecific Compared to previous tracing, patient is now in atrial fibrillation with a rapid ventricular r esponse Abnormal ECG PREVIOUS TRACING : 10/16/2018 17.02 DOCTOR: Ashley Ortega Interpretating Date/Time 10/17/2018 16:23:41
[2018-10-17] MEDS ORDERED: Amiodarone Inj 150 MG in Dextrose 5% in Water Inj 97 ML IV.SIG ONE ×2 (17:15)
--- NOTE | 2018-10-17 17:36 | ECHRPT ---
Indication: AFIB AND FLUTTER CONCLUSIONS The left ventricular systolic function is normal with an estimated ejection fraction in the range of 55-60%. Doppler parameters are consistent with impaired left ventricular relaxtion (grade 1 diastolic dysfun ction). Trace mitral valve regurgitation. There is trace tricuspid valve regurgitation. BP: / HR: Rhythm: MEASUREMENTS (Male / Female) Normal Values Technical Quality: 2D ECHO LV Diastolic Diameter PLAX 4.4 cm 4.2 - 5.9 / 3.9 - 5.3 cm LV Systolic Diameter PLAX 3.3 cm IVS Diastolic Thickness 1.2 cm 0.6 - 1.0 / 0.6 - 0.9 cm LVPW Diastolic Thickness 1.1 cm 0.6 - 1.0 / 0.6 - 0.9 cm LV Relative Wall Thickness 0.5 RV Internal Dim ED PLAX 2.9 cm LVOT Diameter 2.3 cm Aortic Root Diameter 2.0 cm LA Systolic Diameter LX 3.5 cm 3.0 - 4.0 / 2.7 - 3.8 cm M-MODE Aortic Root Diameter MM 3.8 cm LA Systolic Diameter MM 4.7 cm LA Ao Ratio MM 1.2 AV Cusp Separation MM 2.3 cm DOPPLER AV Peak Velocity 136.0 cm/s AV Peak Gradient 7.4 mmHg LVOT Peak Velocity 80.5 cm/s LVOT Peak Gradient 2.6 mmHg AV Area Cont Eq pk 2.5 cm Mitral E Point Velocity 64.2 cm/s Mitral A Point Velocity 86.4 cm/s Mitral E to A Ratio 0.7 TR Peak Velocity 164.0 cm/s TR Peak Gradient 10.8 mmHg Right Atrial Pressure 10.0 mmHg Pulmonary Artery Systolic Pressu 20.8 mmHg Right Ventricular Systolic Press 20.8 mmHg PV Peak Velocity 151.0 cm/s PV Peak Gradient 9.1 mmHg FINDINGS LEFT VENTRICLE Normal left ventricular size. Wall thickness is normal. The left ventricular systolic function is normal with an estimated ejection fraction in the range of 55-60%. There was limited left ventricular wall motion assessment due to poor endocardial visualization. Doppler parameters are consistent with impaired left ventricular relaxtion (grade 1 diastolic dysfun ction). RIGHT VENTRICLE Grossly normal LEFT ATRIUM The left atrial size is mildly dilated. RIGHT ATRIUM The right atrium is not well visualized. ATRIAL SEPTUM Normal atrial septal thickness. AORTA The aortic root and proximal ascending aorta are normal in size on limited imaging. MITRAL VALVE Structurally normal mitral valve. Trace mitral valve regurgitation. No mitral valve stenosis. AORTIC VALVE The aortic valve is not well visualized. Aortic valve sclerosis is present. No aortic valve regurgitation. No aortic valve stenosis. TRICUSPID VALVE Grossly normal There is trace tricuspid valve regurgitation. The estimated pulmonary arterial pressure is 21 mmHg. PULMONARY VALVE The pulmonary valve is not well visualized. No pulmonary valve regurgitation or stenosis. PERICARDIUM No pericardial effusion. Yazan Soriano DO (Electronically Signed) Final Date:17 October 2018 17:34
[2018-10-17] MEDS: Metoprolol Tartrate 50 MG Tablet PO SCH (22:24)
--- NOTE | 2018-10-18 05:17 | XR ---
EXAM DATE: 10/18/2018 5:01 AM EST AGE/SEX: 78 years / Male INDICATIONS: Evaluate for pneumothorax post left chest tube removal. CLINICAL DATA: This is the patient's initial encounter. Patient reports that signs and symptoms have been present for 1 day and indicates a pain score of 2/10. MEDICAL/SURGICAL HISTORY: . Pleural effusion. Chest tube, left. Left lung mass removal. COMPARISON: [facility] [place] 1V SINGLE AP, 10/16/2018. C, CHEST 1V SINGLE AP, 10/15/2018. . FINDINGS: Interval removal of left chest drainage tube without residual pneumothorax. Stable left upper lobe ma ss and adjacent pleural thickening. Interval development of patchy infiltrates at the right lung base causing loss of delineation of a portion of the mid right hemidiaphragm. Heart size within normal li mits. CONCLUSION: 1. No evidence of pneumothorax status post removal of left chest tube. 2. Interval development of subsegmental infiltrate right lower lung. Electronically signed by: Karan Hawkins MD Board Certified Radiologist 10/18/2018 5:15 AM EST
[2018-10-18] MEDS: Metoprolol Tartrate 50 MG Tablet PO SCH ×2 (08:13→21:47)
[2018-10-18] MEDS: Ascorbic Acid 500 MG Tablet PO SCH (08:13)
[2018-10-18] MEDS: Senna/Docusate Sodium 8.6/50 MG Tablet PO SCH ×2 (08:13→21:47)
[2018-10-18] MEDS: Finasteride 5 MG Tablet PO SCH (08:13)
[2018-10-18] MEDS: Enoxaparin Inj 40 MG/0.4 ML Syringe SQ SCH (08:14)
[2018-10-18] MEDS: FINASTERIDE 1 MG PO SCH (09:32)
[2018-10-18] MEDS: Amiodarone 200 MG Tablet PO SCH ×2 (09:32→21:47)
--- NOTE | 2018-10-18 16:51 | P.PNCV ---
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 He underwent CT-PET which showed hypermetabolic mass with possible lymph node involvement at the hilum. 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 PMH: Basal Cell CA, CKD, COPD, essential tremor, HLP 10/15pt electively admitted for surgery Preoperative Diagnosis (1) Lung cancer Postoperative Diagnosis: Date of procedure: 10/15/18 Procedure: Left thoracotomy, excisional biopsy left upper lobe mass grossly invading the chest wall, excisional biopsy second superior segment left lower lobe mass Frozen section - LLL mass (malignant) Lymph node dissection Pathology: other (left upper lobe mass, left lower lobe mass, level 5 lymph node , level 9 lymph node) 10/16 CXR pending, no air leak , chest tube placed to water seal Dr Mayfield to speak with pt and family today regarding surgery outcome, still await final path pt had some difficulty with urination last pm, and required a straight cath has since voided small amounts, 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, 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 GI motility meds , OOB , ambulate UA pending 10/17 went into afib RVR last pm, started on cardizem gtt converted to NSR discussed with Dr Pretty , add ASA, continue BB , outpt f/u with Dr Ling chest tube removed without difficulty await urology input, then dc in am 10/18 converted to NSR then back into Afib increase po amiodarone BP stable , will increase BB Objective: Vital Signs - 24 hr 10/17/18 17:00 10/17/18 18:00 10/17/18 19:00 Temperature Pulse Rate 134 H 72 73 Respiratory Rate Blood Pressure Pulse Oximetry 96 10/17/18 19:34 10/17/18 20:00 10/17/18 21:00 Temperature 97.8 F Pulse Rate 74 70 Respiratory Rate 16 16 Blood Pressure 128/63 Pulse Oximetry 95 10/17/18 22:00 10/17/18 23:00 10/17/18 23:15 Temperature Pulse Rate 70 76 Respiratory Rate 16 Blood Pressure Pulse Oximetry 10/18/18 00:00 10/18/18 01:00 10/18/18 02:00 Temperature 98.1 F Pulse Rate 92 H 78 60 Respiratory Rate 16 Blood Pressure 158/78 H Pulse Oximetry 95 10/18/18 03:00 10/18/18 04:00 10/18/18 05:00 Temperature 98.1 F Pulse Rate 58 L 61 65 Respiratory Rate 16 Blood Pressure 162/77 H Pulse Oximetry 95 10/18/18 06:00 10/18/18 07:00 10/18/18 08:00 Temperature Pulse Rate 77 78 74 Respiratory Rate Blood Pressure Pulse Oximetry 95 10/18/18 09:00 10/18/18 09:06 10/18/18 09:30 Temperature 98.2 F Pulse Rate 80 83 61 Respiratory Rate 17 17 Blood Pressure 167/70 H 169/77 H Pulse Oximetry 95 98 10/18/18 10:00 10/18/18 10:15 10/18/18 11:00 Temperature Pulse Rate 68 56 L Respiratory Rate Blood Pressure Pulse Oximetry 94 L 10/18/18 11:20 10/18/18 12:00 10/18/18 13:00 Temperature 98.1 F Pulse Rate 57 L 64 114 H Respiratory Rate 16 Blood Pressure 144/65 H Pulse Oximetry 95 10/18/18 14:00 10/18/18 15:00 10/18/18 16:00 Temperature Pulse Rate 98 H 69 64 Respiratory Rate 17 Blood Pressure 124/71 Pulse Oximetry 94 L 10/18/18 16:15 Temperature 98.3 F Pulse Rate 123 H Respiratory Rate 16 Blood Pressure 139/88 Pulse Oximetry 95 GENERAL: A&O x 3 SKIN: Warm and dry. HEAD: Normocephalic. EYES: No scleral icterus. No injection or drainage. NECK: Supple, trachea midline. No JVD or lymphadenopathy. CARDIOVASCULAR: irregular rate and rhythm without murmurs, gallops, or rubs. RESPIRATORY: Breath sounds equal bilaterally. No accessory muscle use. dressing to chest tube site GASTROINTESTINAL: Abdomen soft, non-tender, nondistended. MUSCULOSKELETAL: No cyanosis, or edema. BACK: Nontender without obvious deformity. No CVA tenderness. Result Diagrams: 10/17/18 10:20 10/17/18 10:20 - Plan (1) Lung cancer Plan: path pending Final Diagnosis #1- SUPERIOR SEGMENT LEFT LOWER LOBE MASS, WEDGE RESECTION: WELL DIFFERENTIATED ADENOCARCINOMA. SEE TUMOR SYNOPSIS. HISTOLOGIC TYPE: INVASIVE ADENOCARCINOMA, LEPIDIC PREDOMINANT. HISTOLOGIC GRADE: GRADE 1, WELL DIFFERENTIATED. REGIONAL LYMPH NODES: NUMBER OF LYMPH NODES INVOLVED: 0 NUMBER OF LYMPH NODES EXAMINED: 2 (0/2) PATHOLOGIC STAGE CLASSIFICATION (pTNM, AJCC 8th Edition): pT1c, pN0. ADDITIONAL PATHOLOGIC FINDINGS: RESPIRATORY BRONCHIOLITIS. 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 SEE TUMOR SYNOPSIS. HISTOLOGIC TYPE: INVASIVE SQUAMOUS CELL CARCINOMA, NON- KERATINIZING. HISTOLOGIC GRADE: GRADE 3, POORLY DIFFERENTIATED. VISCERAL PLEURAL MARGIN OF RESECTION POSITIVE FOR CARCINOMA. REGIONAL LYMPH NODES: NUMBER OF LYMPH NODES INVOLVED: 1 NUMBER OF LYMPH NODES EXAMINED: 2 (1/2) PATHOLOGIC STAGE CLASSIFICATION (pTNM, AJCC 8th Edition): pT2, pN2. #3- LEVEL 9 LYMPH NODE, EXCISION: NO EVIDENCE OF METASTATIC CARCINOMA IN ONE LYMPH NODE (0/1). #4- LEVEL 5 LYMPH NODE, EXCISION: METASTATIC SQUAMOUS CELL CARCINOMA IN ONE LYMPH NODE (1/). THE METASTASIS IS 0.4 CM IN DIAMETER. EXTRANODAL EXTENSION OF TUMOR IS NOT IDENTIFIED. path discussed with pt per Dr Mayfield discussed with Dr Garcia chest tube dc without difficulty pulm toileting OOB ambulate (3) Urinary retention Plan: barrera cath replaced after prior attempt with straight cath drained 2000cc us neg for bacteria on Flomax and finasteride urology consult/ leave barrera in place followed by Dr Mercado as outpt (4) Atrial fib/flutter, transient Plan: converted back to NSR > Afib on BB on ASA, amiodarone echo EF 55%/ unremarkable outpt f/u with Cardiology
[2018-10-18] MEDS ORDERED: Amiodarone 200 MG Tablet PO ONE (16:52)
[2018-10-18] MEDS ORDERED: Amiodarone Inj 150 MG in Dextrose 5% in Water Inj 97 ML IV.SIG ONE ×2 (17:30)
[2018-10-19 05:51] LABS: Carbon Dioxide 28.3 meq/L (21.0-32.0); Magnesium 2.4 mg/dL (1.5-2.5); Potassium 4.6 meq/L (3.5-5.1)
[2018-10-19] MEDS: Senna/Docusate Sodium 8.6/50 MG Tablet PO SCH (10:02)
[2018-10-19] MEDS: Metoprolol Tartrate 50 MG Tablet PO SCH (10:02)
[2018-10-19] MEDS: Amiodarone 200 MG Tablet PO SCH (10:03)
[2018-10-19] MEDS: Finasteride 5 MG Tablet PO SCH (10:03)
[2018-10-19] MEDS: Ascorbic Acid 500 MG Tablet PO SCH (10:03)
[2018-10-19] MEDS: Enoxaparin Inj 40 MG/0.4 ML Syringe SQ SCH (10:04)
[2018-10-19] MEDS: FINASTERIDE 1 MG PO SCH (10:06)
--- NOTE | 2018-10-19 14:22 | P.DS ---
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 He underwent CT-PET which showed hypermetabolic mass with possible lymph node involvement at the hilum. 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 PMH: Basal Cell CA, CKD, COPD, essential tremor, HLP Patient update on day of discharge: pt in and out of afib rate controlled/ will start eliquis, discussed with pt and stable to dc home dc with barrera cath and leg bag with dc instructions DS: Diagnosis - Discharge Diagnosis (1) Lung cancer Status: Chronic (2) S/P thoracotomy Status: Acute (3) Urinary retention Status: Acute (4) Atrial fib/flutter, transient Status: Acute DS: Medications - Discharge Medications Prescriptions: amiodarone 200 mg PO Q12HR #30 tab apixaban [Eliquis] 5 mg PO BID #60 tab finasteride 5 mg PO DAILY #30 tab hydrocodone-acetaminophen 1 tab PO Q6H PRN #20 tab PRN Reason: pain 1-5 metoprolol tartrate 50 mg PO BID #60 tab tamsulosin 0.4 mg PO DAILY #30 cap DS: Summary Hospital Course: 10/15pt electively admitted for surgery Preoperative Diagnosis (1) Lung cancer Postoperative Diagnosis: Date of procedure: 10/15/18 Procedure: Left thoracotomy, excisional biopsy left upper lobe mass grossly invading the chest wall, excisional biopsy second superior segment left lower lobe mass Frozen section - LLL mass (malignant) Lymph node dissection Pathology: other (left upper lobe mass, left lower lobe mass, level 5 lymph node , level 9 lymph node) 10/16 CXR pending, no air leak , chest tube placed to water seal Dr Mayfield to speak with pt and family today regarding surgery outcome, still await final path pt had some difficulty with urination last pm, and required a straight cath has since voided small amounts, will dc [employer], 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 GI motility meds , OOB , ambulate UA pending 10/17 went into afib RVR last pm, started on cardizem gtt converted to NSR discussed with Dr Pretty , add ASA, continue BB , outpt f/u with Dr Ling chest tube removed without difficulty await urology input, then dc in am 10/18 converted to NSR then back into Afib increase po amiodarone BP stable , will increase BB 10/19 intermittent afib/ started on eliquis rate improved, will dc home , f/u with Cardiology - Time Spent with Patient Total time spent providing and/or coordinating discharge services: Greater than 30 minutes - Quality: VTE Deep Vein Thrombosis/Pulmonary Embolism Present on Admission: No Exam Vital signs: Vital Signs 10/18/18 15:00 10/18/18 16:00 10/18/18 16:15 Temperature 98.3 F Pulse Rate 69 64 123 H Respiratory Rate 16 Blood Pressure 139/88 Pulse Oximetry 95 10/18/18 17:00 10/18/18 18:45 10/18/18 19:00 Temperature Pulse Rate 135 H 95 H 102 H Respiratory Rate Blood Pressure Pulse Oximetry 96 10/18/18 20:00 10/18/18 21:00 10/18/18 22:00 Temperature 97.2 F L Pulse Rate 94 H 86 84 Respiratory Rate 16 Blood Pressure 172/92 H Pulse Oximetry 96 10/18/18 23:00 10/19/18 00:00 10/19/18 01:00 Temperature 98.1 F Pulse Rate 60 62 78 Respiratory Rate 16 Blood Pressure 148/76 H Pulse Oximetry 96 10/19/18 02:00 10/19/18 03:00 10/19/18 04:00 Temperature 98.1 F Pulse Rate 76 64 69 Respiratory Rate 16 Blood Pressure 155/70 H Pulse Oximetry 95 10/19/18 05:00 10/19/18 06:00 10/19/18 07:00 Temperature Pulse Rate 72 67 81 Respiratory Rate Blood Pressure Pulse Oximetry 95 10/19/18 08:00 10/19/18 09:00 10/19/18 10:00 Temperature 97.7 F Pulse Rate 84 76 78 Respiratory Rate 20 Blood Pressure 167/80 H Pulse Oximetry 95 10/19/18 11:00 10/19/18 12:00 Temperature 97.5 F L Pulse Rate 60 61 Respiratory Rate 20 Blood Pressure 139/63 Pulse Oximetry 98 Intake & Output 10/18/18 10/19/18 10/19/18 18:59 06:59 18:59 Intake Total 480 / 480 930 / 930 Output Total 800 / 800 1150 / 1150 Balance -320 / -320 -220 / -220 Weight 84 kg Intake: IV 250 / 250 Oral 480 / 480 680 / 680 Output: Stool 0 / 0 Urine Amount (Catheter) 800 / 800 1150 / 1150 Indwelling Urethral Catheter 800 / 800 1150 / 1150 Other: Date of Last Bowel Movement 10/15/18 10/14/18 - Constitutional no acute distress - Routine HEENT Exam Head: Present: normocephalic Eye: Present: EOMI, normal accommodation - Routine Neck Exam Present: supple, full ROM - Routine Chest/Breast/Axilla Exam Chest wall: Present: tenderness - Routine Respiratory Exam Present: CTA bilaterally - Routine Cardiovascular Exam Present: RRR, S1, irregular rhythm - Routine Abdominal Exam Present: soft, normoactive bowel sounds - Routine Exam Comments: indwelling barrera cath in place - Routine Extremities Exam Present: full ROM, pulses intact, normal capillary refill - Routine Skin Exam Present: intact, wounds Comments: left lateral chest wall incision intact and well approximated - Routine Neurological Exam Present: alert, oriented X3, CN II-XII intact Results Procedures completed during hospitalization: Preoperative Diagnosis (1) Lung cancer Postoperative Diagnosis: same Date of procedure: 10/15/18 Procedure: Left thoracotomy, excisional biopsy left upper lobe mass grossly invading the chest wall, excisional biopsy second superior segment left lower lobe mass Frozen section - LLL mass (malignant) Lymph node dissection Labs on day of discharge: Labs from last 24 hours 10/19/18 04:53 Sodium 137 Potassium 4.6 D Chloride 101 Carbon Dioxide 28.3 Anion Gap 8 BUN 19 H Creatinine 1.12 Estimated GFR 63 L Random Glucose 114 H Calcium 9.0 D Magnesium 2.4 - Impressions ITS Impressions Chest X-Ray 10/18/18 06:00 CONCLUSION: 1. No evidence of pneumothorax status post removal of left chest tube. 2. Interval development of subsegmental infiltrate right lower lung. Discharge Plan - Discharge Disposition Patient Disposition: W/Home Health Service - Discharge Condition Condition: Good - Discharge Order Discharge Orders: Discharge Order (Routine); Ordered 10/19/18 Ordered By: Nanette Sinclair - Discharge Details Anticipated Discharge Date: 10/19/18 - Physicians Team Primary Care Provider: Chetan Hurtado Attending Provider: Sita Mayfield Other Providers: Juan Herman MD ; [facility] ; Alex Pretty MD - Rxs /Orders / Referrals /Forms Prescriptions: New amiodarone 200 mg Tablet 200 mg PO Q12HR Qty: 30 RF: 0 apixaban [Eliquis] 2.5 mg Tablet 5 mg PO BID Qty: 60 RF: 2 aspirin [Enteric Coated Aspirin] 81 mg Tablet,Delayed Release (Dr/Ec) 81 mg PO DAILY Qty: 30 RF: 2 docusate sodium [Colace] 100 mg Capsule 100 mg PO DAILY Qty: 30 RF: 0 finasteride 5 mg Tablet 5 mg PO DAILY Qty: 30 RF: 2 hydrocodone-acetaminophen 5-325 mg Tablet 1 tab PO Q6H PRN (Reason: pain 1-5) Qty: 20 RF: 0 metoprolol tartrate 50 mg Tablet 50 mg PO BID Qty: 60 RF: 2 tamsulosin 0.4 mg Capsule 0.4 mg PO DAILY Qty: 30 RF: 2 Continue ascorbic acid (vitamin C) [Vitamin C] 1,000 mg Tablet 1,000 mg PO DAILY multivitamin Tablet 1 tab PO DAILY simvastatin 40 mg Tablet 40 mg PO QPM vit A,C and [id number] [Ocuvite with Lutein] 1,000 unit-200 mg-60 unit -2 mg Tablet 1 tab PO DAILY Discontinued finasteride 1 mg Tablet 1 mg PO DAILY Referrals: Nanette Sinclair [[facility] RN PRACTITIONER] - See Instructions ( Your appointment has been scheduled for [11/08/18] at [11:45 am] If you cannot make this appointment, please call the office to reschedule ) Trina Garcia MD [Physician] - See Instructions ( Your appointment has been scheduled for [11/23/18] at [9:20 am] If you cannot make this appointment, please call the office to reschedule ) Sushil Baca DO [Physician] - See Instructions ( Your appointment has been scheduled for [11/16/18] at [10:00AM] If you cannot make this appointment, please call the office to reschedule ) Chetan Hurtado MD, PhD [Primary Care Provider] - See Instructions (Hope from the physician's office will call to book the appointment. Please be sure to be seen within [2 weeks of discharge].) Lamine Mercado MD [Physician] - See Instructions ( Your appointment has been scheduled for [10/25/18] at [9:45 am] If you cannot make this appointment, please call the office to reschedule ) - Discharge Instructions Additional Instructions: Incentive spirometry Q1 hr x 10, while awake, also use acapella device hourly whole Chest wall precautions: NO pushing or pulling, ( pt must use chest pillow support chest with all activities and with coughing Daily incision care: ok to shower ( 48hrs after chest tube removed) and then daily, no tub bath. Wash all incisions with liquid dial soap, clean wash cloth to each site, rinse and pat dry. Observe for any signs of infection, such as drainage which is dark yellow, guevara, green or foul smelling. Immediately report to the surgeon any drainage from the chest incision, or legs, and for any abnormal drainage from the chest tube sites. Notify surgeon if any temp > 101.5 degrees F. When specialty dressing removed/ or if you do not have one, continue to shower daily as above, then rinse and pat incision dry and paint with betadine daily x 5 days. Allow steri strips to fall off if you have any. Avoid lotions, creams, salves, oils, etc. for the first month For Dr. Mayfield patients , please obtain PA & Lat CXR in 2 weeks, results to Dr. Mayfield ( prescription will be given) ( ) (Tele: ) , F/U appointment: as per [place] instructions: PCP in 2 weeks, CV surgeon 2 weeks, Vamp Creaser 3-4 weeks For any questions regarding incisions/ dressing / meds / post op care or above Symptoms, Monday 8am-5pm Heart & Vascular Surgery Office ( Dr. Leung & Dr. Mayfield), After Hours / Nights (5pm -8am) Weekends and Holidays Please call [facility] Cardiac [facility] Unit ([facility]) Charge Nurse barrera cath care /
== END 2018-10-19 16:00 | disposition home health service (06) ==
LOC: HSDI 05:23 → HCPC 14:50
PROVIDERS: ADMIT Thoracic Surgery (Cardiothoracic Vascular Surgery); ATTEND Thoracic Surgery (Cardiothoracic Vascular Surgery)